=== PATIENT | female | born 1990 | race African-American/Black ===

== ENCOUNTER 2020-04-19 12:11 | Emergency (ER) | payer MEDICAID, SELFPAY ==
--- NOTE | ~2020-04-19 | US_ITS ---
EXAMINATION: US OB <=14 wk fetus w TV DATE: 04/19/2020 13:46 INDICATION: Vaginal bleeding and pelvic pain during of indeterminate age. TECHNIQUE: Real-time pelvic ultrasound utilizing both a transvaginal and transabdominal probe was pe rformed. The interpreting radiologist was not present for the study. COMPARISON: None. FINDINGS: The uterus measures 10.3 x 5.4 x 5.2 cm. There is 3 mm anechoic cystic structure at the uterine fund us near the expected location of the endometrial complex which is poorly visualized on the sagittal i mages. No discernible yolk sac or pole. A couple small anechoic nabothian cysts at the cervix. The right ovary measures 2.2 x 2.1 x 2.5 cm. The left ovary measures 3.2 x 2.1 x 2.6 cm. 1.6 similar hypoechoic likely corpus luteum cyst at the left ovary. There is no free fluid in the pelvis. IMPRESSION: 1. 3 mm cystic structure near the expected location of the endometrial complex at the uterine fundus which is indeterminate for a gestational sac with no discernible yolk sac or pole. Differential remains early , failed or ectopic . Recommend correlation with serial be ta-hCG levels. Reviewed, dictated and finalized at location A. PATOLOGIST IMPRESSION: 1. 3 mm cystic structure near the expected location of the endometrial complex at the uterine fundus which is indeterminate for a gestational sac with no disc ernible yolk sac or pole. Differential remains early , failed pr egnancy or ectopic . Recommend correlation with serial beta-hCG levels .
[2020-04-19 12:13] VITALS: BP 162/103; PULSE 91; RESP 20; O2SAT 100
--- NOTE | 2020-04-19 13:12 | ED.GENADULT ---
HPI - General Adult General Chief complaint: Abdominal Pain Stated complaint: abdominal pain Time Seen by Provider: 04/19/20 12:29 History of Present Illness HPI narrative: Patient is a 29-year-old female who presents ER with lower abdominal pain. Ongoing over the last couple days. Associate with some vaginal bleeding that is small in quantity. Reports some urinary frequency but no dysuria. Has not had pain like this before. Patient is unsure of her last menstrual period. She was found to be on bedside test here. Patient is a G4, P1 elective AB 2. Denies vaginal discharge. Related Data Home Medications Medication Instructions Recorded Confirmed losartan 100 mg PO DAILY 04/19/20 Allergies Allergy/AdvReac Type Severity Reaction Status Date / Time No Known Allergies Allergy Verified 04/19/20 12:13 Review of Systems Review of Systems: All systems reviewed & are unremarkable except as noted in HPI and below Constitutional: Constitutional: Denies chills, Denies fever(s) and Denies weakness Gastrointestinal: Gastrointestinal: Reports abdominal pain, Denies diarrhea, Denies nausea and Denies vomiting Genitourinary: Genitourinary: Reports abnormal vaginal bleeding, Reports nocturia, Denies dysuria, Reports pelvic pain and Denies vaginal discharge PMFSH Past Medical History Medical History (Updated 04/19/20 @ 15:57 by Elbert Neves MD) Hypertension Medulloblastoma Surgical History Surgical History (Updated 04/19/20 @ 13:17 by Elbert Neves MD) H/O brain surgery Exam Narrative: Exam Narrative: GENERAL: Well-appearing, well-nourished, and in no acute distress. HEAD: Normocephalic, atraumatic. CHEST: Clear to auscultation. No respiratory distress. HEART: Regular rate and rhythm. Normal peripheral pulses. ABDOMEN: Soft, mild suprapubic tenderness without guarding, nondistended. : Normal external genitalia. Small to moderate amount of blood within the vagina with small clot. Cervix closed and uterus nonfriable. No discharge. EXTREMITIES: Normal range of motion. No edema. SKIN: Warm, dry, no rash. NEURO: Alert and oriented x3. PSYCH: Normal mood and affect. Course Course Emergency Course: Patient is O+ and does not require RhoGam. Ultrasound shows her to be early IUP. There is moderate amount of blood however on the speculum exam. Discussed case with patient's OB Dr. Tracy. Recommends 48-hour beta-hCG measurement and follow-up in clinic. Bleeding precautions to be given to patient. Vital Signs Vital signs: Vital Signs Pulse Rate 91 04/19/20 12:13 Respiratory Rate 20 04/19/20 12:13 Blood Pressure 162/103 H 04/19/20 12:13 Pulse Oximetry 100 04/19/20 12:13 Pulse Rate 96 04/19/20 14:13 Respiratory Rate 18 04/19/20 14:13 Blood Pressure 150/91 H 04/19/20 14:13 Pulse Oximetry 100 04/19/20 14:13 Medical Decision Making Vital Signs Vital Signs: Vital Signs Pulse Rate 91 04/19/20 12:13 Respiratory Rate 20 04/19/20 12:13 Blood Pressure 162/103 H 04/19/20 12:13 Pulse Oximetry 100 04/19/20 12:13 Pulse Rate 96 04/19/20 14:13 Respiratory Rate 18 04/19/20 14:13 Blood Pressure 150/91 H 04/19/20 14:13 Pulse Oximetry 100 04/19/20 14:13 Lab Data Result diagrams: 04/19/20 13:17 04/19/20 13:17 Labs: Lab Results 04/19/20 04/19/20 04/19/20 Range/Units 13:11 13:17 13:17 WBC 7.2 (4.5-10.0) K/mm3 RBC 4.63 (4.2-5.4) M/mm3 Hgb 12.6 (12.0-15.0) g/dL Hct 39.2 (37.0-47.0) % MCV 84.7 (80-100) fl MCH 27.2 (26-34) pg MCHC 32.1 (32-36) g/dl RDW 16.0 H (11.5-14.5) % Plt Count 359 (150-375) k/mm3 MPV 8.6 (7.4-10.4) fl Immature Gran % (Auto) 0.7 H (0-0.5) % Neut % (Auto) 65.0 (45.5-73.1) % Lymph % (Auto) 27.0 (18.3-44.2) % [place] % (Auto) 5.6 (2.6-8.5) % Eos % (Auto) 1.4 (0-4.4) % Baso % (Auto) 0.3 (0.2-1.2)
[2020-04-19 13:30] LABS: Basophils Percent Auto 0.3 % (0.2-1.2); Eosinophils Absolute Auto 0.1 K/mm3 (0-0.3); Eosinophils Percent Auto 1.4 % (0-4.4); Hematocrit 39.2 % (37.0-47.0); Hemoglobin 12.6 g/dL (12.0-15.0); Immature Granulocyte Absolute 0.05 K/mm3 (0.00-0.031); Immature Granulocyte Percent A 0.7 % (0-0.5); Lymphocytes Absolute Auto 1.93 K/mm3 (0.9-3.2); Mean Corpuscular HGB Conc 32.1 g/dl (32-36); Mean Corpuscular Hemoglobin 27.2 pg (26-34); Mean Corpuscular Volume 84.7 fl (80-100); Mean Platelet Volume 8.6 fl (7.4-10.4); Monocytes Absolute Auto 0.4 K/mm3 (0.1-0.6); Monocytes Percent Auto 5.6 % (2.6-8.5); Neutrophils Absolute Auto 4.7 K/mm3 (1.3-6.7); Platelet Count Result 359 k/mm3 (150-375); Red Blood Count 4.63 M/mm3 (4.2-5.4); White Blood Count 7.2 K/mm3 (4.5-10.0)
[2020-04-19 13:37] LABS: Add Urine Microscopic? YES; Appearance Urine Clear (Clear); Bacteria Urine Trace /hpf; Bilirubin Urine Negative (Negative); Blood Urine 3+ (Negative); Color Urine Yellow (Yellow); Glucose Urine UA Negative (Negative); Ketones Urine Negative (Negative); Leukocyte Esterase Ur 1+ LEU/UL (Negative); Mucus Urine Rare /lpf; Nitrate Urine Negative (Negative); Protein Urine 1+ mg/dL (Negative); RBC Urine >75 /hpf (0-2); Specific Grav Ur 1.013 (1.001-1.035); Squamous Epithelial Cell Urine Many /hpf (Few); Urobilinogen Urine Negative mg/dL (<2.0)
[2020-04-19 13:41] LABS: Anion Gap 7 mmol/L (8-16); Blood Urea Nitrogen 9 mg/dL (7-17); Calcium 8.7 mg/dL (8.4-10.2); Carbon Dioxide 27 mmol/L (22-30); Chloride 105 mmol/L (98-107); Estimated CRCL calculation 156 ml/min; Estimated Glomerular Filt Rate > 60; Glucose 109 mg/dL (65-105); Potassium 3.5 mmol/L (3.4-5.0); Sodium 139 mmol/L (137-145)
[2020-04-19 14:13] VITALS: BP 150/91; PULSE 96; RESP 18; O2SAT 100
== END 2020-04-19 16:27 | disposition home or self-care (01) ==
PROVIDERS: Emergency Provider Emergency Medicine
DX: O20.0 Threatened abortion (principal); O10.911 Unspecified pre-existing hypertension complicating pregnancy, first trimester; Z3A.01 Less than 8 weeks gestation of pregnancy
CPT/HCPCS: 36415; 76801; 76817; 80048; 81001; 81025; 84702; 85025; 85461; 87086; 99284

== ENCOUNTER 2020-04-21 12:40 | Outpatient (CLI) | payer MEDICAID, SELFPAY | END 2020-04-21 12:41 | disposition home or self-care (01) | DX: O20.0 Threatened abortion (principal) | CPT/HCPCS: 36415; 84702 ==